=== PATIENT | male | born 1970 | race Two or more races ===

== ENCOUNTER 2018-05-27 16:34 | Emergency (ER) | payer OTHER ==
[~2018-05-27] VITALS: Ht 165.1 cm; Wt 100.7 kg
[~2018-05-27 16:34] MED LIST: PRILOSEC10 MG PO; ZANTAC150 M3 PO; ZYRTEC10 MG PO
== END 2018-05-27 19:50 | disposition home or self-care (01) ==
LOC: ER 16:34
DX: M25.532 Pain in left wrist (principal)

== ENCOUNTER 2018-08-26 13:29 | Emergency (ER) | payer OTHER ==
[~2018-08-26] VITALS: Ht 165.1 cm; Wt 90.7 kg
[2018-08-26] MEDS ORDERED: PRILOSEC10 MG (14:16)
[2018-08-26] MEDS ORDERED: ZANTAC300 MG (14:16)
== END 2018-08-26 16:07 | disposition home or self-care (01) ==
LOC: ER 13:29
DX: S13.4XXA Sprain of ligaments of cervical spine, initial encounter (principal); V49.9XXA Car occupant (driver) (passenger) injured in unspecified traffic accident, initial encounter; Y93.89 Activity, other specified; Y92.488 Other paved roadways as the place of occurrence of the external cause; Y99.8 Other external cause status

== ENCOUNTER 2019-01-14 10:05 | Outpatient (CLI) | payer OTHER ==
[~2019-01-14 10:05] MED LIST changes: +PRILOSEC10 MG; +ZANTAC300 MG
== END 2019-01-14 10:17 | disposition home or self-care (01) ==
LOC: TOM 10:05
DX: R10.84 Generalized abdominal pain (principal)

== ENCOUNTER 2020-09-21 07:30 | Emergency (ER) | payer OTHER ==
[~2020-09-21] VITALS: Ht 165.1 cm; Wt 106.6 kg
[2020-09-21] MEDS ORDERED: PEPCID40 MG (07:40)
== END 2020-09-21 10:25 | disposition home or self-care (01) ==
LOC: ER 07:30 → CPU-OBS 08:05 → ER 10:25
DX: R07.89 Other chest pain (principal); M79.18 Myalgia, other site; R10.2 Pelvic and perineal pain
CPT/HCPCS: G0378; G0379; 93005

== ENCOUNTER 2024-03-23 09:09 | Emergency (ER) | payer OTHER ==
[~2024-03-23] VITALS: Ht 165.1 cm; Wt 113.4 kg
[~2024-03-23 09:09] MED LIST changes: +PEPCID40 MG
[2024-03-23] MEDS ORDERED: ROSUVASTATIN CAL5 MG (09:54)
[2024-03-23] MEDS ORDERED: IRBESARTAN-HCT1 EACH (09:54)
[2024-03-23 09:55] VITALS: BP 113/78; O2SAT 95
[2024-03-23] MEDS ORDERED: ADULT LOW DOSE81 M1 (09:55)
[2024-03-23] MEDS ORDERED: BENZONATATE 100 MG CAPSULE PO ONE (10:00)
[2024-03-23] MEDS ORDERED: IPRATROPIUM/ALBUTEROL SULFATE 3 ML AMPUL.NEB IH ONE (10:00)
[2024-03-23 10:50] LABS: CREATININE SERUM 0.94 mg/dL (0.70-1.30); GFR 83.32; POTASSIUM 4.12 mEq/L (3.5-5.1)
[2024-03-23 10:55] LABS: HEMATOCRIT 46.9 % (39.0-48.0); HEMOGLOBIN 16.4 g/dL (13-16.00); MEAN CELL VOLUME 96.2 fL (80.0-100.00); MEAN CORPUSCULAR HEMOGLOBIN 33.6 pg (27.00-32.0); MEAN CORPUSCULAR HGB CONC 34.9 g/dl (32.0-36.0); PLATELET COUNT 243 K/uL (150-450); RED BLOOD COUNT 4.88 M/uL (4.00-6.00); RED CELL DISTRIBUTION WIDTH 12.9 % (11.5-14.5)
[2024-03-23 11:03] LABS: ABG PH 7.398 (7.35-7.45); ABG PO2 82.6 mmHg (80-100); ABG pCO2 40.7 mmHg (35-45); BASE EXCESS -0.3 mmol/l; BICARBONATE 24.5 mmol/l (23-25); Tco2 25.8 mmol/l; allen test SATISFACTORY; o2 21 %; puncture site RADIAL LEFT
[2024-03-23] MEDS ORDERED: BENZONATATE200 M1 PO (11:47)
[2024-03-23] MEDS ORDERED: IPRAT-ALBUT 0.5-3 ML IH (11:47)
[2024-03-23] MEDS ORDERED: AMOX1TAB5 PO (11:47)
== END 2024-03-23 11:57 | disposition home or self-care (01) ==
LOC: ER 09:11
PROVIDERS: General Practice
DX: B34.9 Viral infection, unspecified (principal); J43.9 Emphysema, unspecified; F17.210 Nicotine dependence, cigarettes, uncomplicated; J45.909 Unspecified asthma, uncomplicated; Z20.822 Contact with and (suspected) exposure to COVID-19

== ENCOUNTER → 2024-04-21 07:56 | Outpatient (CLI) | payer OTHER ==
[~2024-04-21 07:56] MED LIST changes: +ADULT LOW DOSE81 M1; +AMOX1TAB5 PO; +BENZONATATE200 M1 PO; +IPRAT-ALBUT 0.5-3 ML IH; +IRBESARTAN-HCT1 EACH; +ROSUVASTATIN CAL5 MG
== END | disposition home or self-care (01) ==
LOC: NUCLEAR 07:56
PROVIDERS: ATTEND Internal Medicine Pulmonary Disease
DX: R91.1 Solitary pulmonary nodule (principal); J43.2 Centrilobular emphysema